=== PATIENT | male | born 1950 | race Two or more races ===

== ENCOUNTER 2019-07-25 20:33 | Emergency (ER) | payer OTHER ==
[~2019-07-25] VITALS: Ht 182.9 cm; Wt 81.6 kg
[2019-07-25 21:00] VITALS: Ht 182.9 cm; Wt 81.6 kg
[2019-07-25 21:25] LABS: BASOPHIL % 0.4 % (0-2); PLATELET COUNT 287 x10^3mcL (130-400); RED CELL DISTRIBUTION WIDTH 13.9 % (11.5-14.5)
[2019-07-25 21:42] LABS: CALCIUM 8.3 mg/dL (8.5-10.1); CARBON DIOXIDE 24.7 mmol/L (21-32); CHLORIDE SERUM 104 mmol/L (98-107); CREATININE SERUM 1.1 mg/dL (0.7-1.3); GFR1 > 60 mL/min; GLUCOSE SERUM 122 mg/dL (74-106); SODIUM SERUM 140 mmol/L (136-145)
[2019-07-25 21:51] LABS: ALBUMIN 3.4 g/dL (3.4-5.0); ALKALINE PHOSPHATASE 80 U/L (46-116); ALT/SGPT 14 U/L (16-63); AST/SGOT 12 U/L (15-37); BILIRUBIN TOTAL 0.4 mg/dL (0.20-1.00); TOTAL PROTEIN, SERUM 7.1 g/dL (6.4-8.2)
[2019-07-26 01:00] VITALS: BP 159/79
== END 2019-07-26 01:00 | disposition home or self-care (01) ==
LOC: ED 20:33
PROVIDERS: Emergency Medicine
DX: G40.909 Epilepsy, unspecified, not intractable, without status epilepticus (principal); I10 Essential (primary) hypertension
CPT/HCPCS: 83880; J1953; J2060; J2405; Q0092